=== PATIENT | male | born 1960 | race Caucasian/White ===

== ENCOUNTER → 2025-03-07 06:59 | Outpatient (CLI) | payer MEDICARE, SELFPAY ==
--- NOTE | 2025-03-12 11:31 | DI.NM.S_ITS ---
DATE OF SERVICE: 03/07/2025 NUCLEAR CARDIOLOGY MYOCARDIAL PERFUSION STUDY PROCEDURE: Exercise treadmill stress and rest myocardial perfusion imaging with gating to assess ejection fraction and regional wall motion. ORDERING PROVIDER: Jair Bernal M.D. INDICATION: The patient is a 64-year-old hypertensive male with exertional dyspnea. CARDIAC STRESS: The patient was able to exercise for 8 minutes 11 seconds on a standard Miguelito protocol suggesting fair exercise capacity with an WHIT of -4%, achieving 10.1 METS. He had a normal heart rate response to exercise, achieving a maximum heart rate of 163 bpm (105% of his predicted maximum). He had a mild hypertensive blood pressure response with a resting blood pressure of 130/82, increasing to a maximum of 210/80. He had moderate dyspnea but no chest discomfort. His resting ECG shows sinus rhythm with occasional PVCs but normal ST segments. With stress, he develops 1 to [address] depression, nonspecific for ischemia, and resolution of his PVCs. The ST depression resolves within 1 minute of recovery and his PVCs return in late recovery. There is no complex ventricular ectopy. At 6 minutes 40 seconds of exercise at a heart rate of 157 BPM, 25.2 millicuries of technetium-99m Myoview was injected and he was imaged 15 minutes later using a gated SPECT acquisition protocol. Four days later while at rest, he was injected with an additional 25.0 millicuries of technetium-99m Myoview and imaged 15 minutes later, again using a gated SPECT acquisition protocol. FINDINGS: 1. Raw Data: There is fairly good myocardial tracer uptake. The lung/heart ratio is normal at 0.36 with a normal TID ratio of 0.84. 2. Quantitated Gated SPECT: Post-stress ejection fraction is 70% without any focal wall motion abnormality and specifically the inferior wall has normal contractility. The resting ejection fraction is 57% although visually appears similar to that of the post-stress ejection fraction. Resting end-diastolic volume is normal at 103 mL. 3. Myocardial perfusion imaging: Post-stress supine images show a mild perfusion defect in the mid and distal inferior wall, extending to the apex, in a pattern consistent with diaphragmatic attenuation artifact, supported by its complete resolution on the prone images which show a normal, homogeneous perfusion pattern. The resting images show a similar perfusion pattern to that of the post-stress images although with slight improvement in the inferior defect, but likely non-significant. IMPRESSION: 1. Normal myocardial perfusion study. 2. Mild predominantly fixed inferior perfusion defect that resolves on prone images, most consistent with diaphragmatic attenuation artifact. There is no compelling evidence for significant myocardial ischemia or previous myocardial infarction. 3. Normal left ventricular size and systolic function without focal wall motion abnormality. 4. Fair exercise capacity without angina but mild, nonspecific ST- depression, perhaps due to a mild hypertensive blood pressure response to exercise. He had occasional PVCs at rest, resolving with stress, and returning in recovery but no concerning, complex ectopy. Larry Howard - /kehinde/[employer]ORMY doc#: [id number]/job#: [id number] dd: 03/11/2025 16:54:00 dt: 03/11/2025 18:33:00 DICTATING MD/COPIES TO: Pramod Jean MD; Jair Bernal M.D. COPIES MNE: ANIKA;
== END ==
LOC: NUCM 07:01
PROVIDERS: PCP Family Medicine; Referring Provider Family Medicine; Visit Provider Family Medicine
DX: I10 Essential (primary) hypertension (principal); R06.09 Other forms of dyspnea
CPT/HCPCS: 78452; 93017; A9502